=== PATIENT | female | born 2000 | race Caucasian/White ===

== ENCOUNTER → 2023-12-21 15:32 | Outpatient (REF) | payer OTHER, SELFPAY | LOC: RAD 15:32 | PROVIDERS: ATTENDING PHYSICIAN Family Medicine | DX: J45.901 Unspecified asthma with (acute) exacerbation (principal) | CPT/HCPCS: 71046 ==

== ENCOUNTER 2024-04-28 18:59 | Emergency (ER) | payer OTHER, SELFPAY ==
[2024-04-28 19:09] VITALS: BP 137/89
[2024-04-28 19:42] LABS: % Basophils 0.5 % (0-2); % Eosinophils 0.7 % (0-6); % Immature Granulocytes 0.4 % (0-0.5); % Lymphocytes 34.2 % (20.5-51.1); % Monocytes 7.1 % (1.7-9.3); % Neutrophils 57.1 % (42.2-75.2); Absolute Eosinophils 0.1 10^3/uL (0-0.7); Absolute Lymphocytes 2.9 10^3/uL (1.2-3.4); Absolute Monocytes 0.6 10^3/uL (0.1-0.6); Absolute Neutrophils 4.8 10^3/uL (1.4-6.5); Hematocrit 44.5 % (37.0-47.0); Hemoglobin 15.1 g/dL (12.0-16.0); Mean Corp Hgb Conc. 33.9 g/dL (33.0-37.0); Mean Corpuscular Hgb 28.1 pg (27.0-31.0); Mean Corpuscular Volume 82.9 fL (81.0-99.0); Mean Platelet Volume 9.7 fL (7.4-10.4); Nucleated Red Blood Cells % 0 %; Platelet Count 352 10^3/uL (130-400); Red Blood Cell Count 5.37 10^6/uL (4.20-5.40); Red Cell Dist. Width 12.4 % (11.5-14.5); White Blood Cell Count 8.5 10^3/uL (4.8-10.8)
[2024-04-28 19:57] LABS: HCG, Serum Qualitative Screen Negative
[2024-04-28 20:04] LABS: ALT (SGPT) 30 U/L (0-35); AST (SGOT) 24 U/L (14-36); Albumin 4.7 g/dl (3.5-5.0); Alkaline Phosphatase 67 U/L (38-126); Blood Urea Nitrogen 15 mg/dl (7-17); Calcium 9.6 mg/dl (8.4-10.2); Carbon Dioxide 25 mmol/L (22-30); Chloride 102 mmol/L (98-107); Glucose 110 mg/dl (70-99); Potassium 4.3 mmol/L (3.5-5.1); Sodium 137 mmol/L (135-145); Total Bilirubin 0.4 mg/dl (0.2-1.3); Total Protein 7.4 g/dl (6.3-8.2); eGFR > 60.00
[2024-04-28 20:05] LABS: Troponin I < 0.012 ng/ml
[2024-04-28 20:07] LABS: D-Dimer < 0.27 ug/mlFEU (0.00-0.50)
--- NOTE | 2024-04-28 20:38 | ED.GENMED ---
History of Present Illness
General
Chief Complaint: Cold/Flu/URI Symptoms
Source: patient
Exam Limitations: none
Time Seen by Provider: 04/28/24 20:14
History of Present Illness
History of Present Illness:
This is a 24 year old female that comes in with c/o left sided chest pain. States that on Sunday she was nauseated and dizzy. Then yesterday she started with left sided chest pain that on the left lateral chest left upper chest and left sternal
pain. States that it is not musculoskeletal as when she pushes on it, there is no increased pain. State that the pain then goes into her arm and shoulders. States that she also had some tingling of the hands and this only lasted about 10 min. Today
she still has difficulty breathing, chest pain and pain in the arms that comes in waves. States that she tried to sleep and her boyfriend said that her breathing was very shallow. States that she has a constant headache and occasionally she feels
like the room is spinning. Denies any fever, chills, abd pain, vomiting, diarrhea, urinary burning.
Past History
Past History
ED Past Medical History: Asthma and Other (Back and neck pain chronic, MIgraines. TBI, Concussion x 7, PCOS)
ED Past Surgical History: None and Other (Rizotomies X2 of back and 1 of neck. )
Social History
Tobacco: Vaping
Alcohol: Occasional
Drug: None
Personal: Single
Living: with family
Family History
Family History: Negative Diabetes, Hypertension or CAD
Review of Systems
Review of Systems
All Other Systems: ROS reviewed and negative except as documented in HPI and ROS
Constitutional: Reports no symptoms; Denies fever or chills
EENT: Reports no symptoms
Respiratory: Reports trouble breathing; Denies cough
Cardiac: Reports chest pain
ABD/GI: Reports nausea; Denies abdominal pain, vomiting or diarrhea
: Denies dysuria, frequency or urgency
Musculoskeletal: Reports no symptoms
Neurological: Reports dizzy (Occasional) and headache (Constant)
Psychiatric: Reports no symptoms
Phy Exam
General Physical Exam
General Presentation: well appearing (Patient gate is stable and she is smiling) and no apparent distress
General age: appears stated age
General Skin: warm and dry
General Habitus: normal
General Mental: alert
General Hydration: appears well hydrated
ENT Exam
ENT Exam: TM's normal, pharynx normal and neck supple
Eye Exam
Eye Exam: EOMI
Cardiovascular Exam
Cardiovascular Exam: regular rate/rhythm, no edema, no murmur and normal peripheral pulses
Pulmonary Exam
Pulmonary Exam: lungs clear, no respiratory distress, no rales, chest non tender, no crackles, no rhonchi, no wheezing and no cough
Gastrointestinal Exam
Gastrointestinal Exam: normal bowel sounds, non tender, soft, no pulsatile mass and non distended
Musculoskeletal Exam
Musculoskeletal Exam: full ROM and no edema
Skin Exam
Skin Exam: normal color, warm/dry, no rash and no petechia
Psychiatric Exam
Psychiatric Exam: normal mood/affect
Course
Orders/Labs/Results
Orders:
Orders
04/28/24 19:18
Electrocardiogram (*1) Urgent
Reason for Study: Chest Pain
Cardiac Monitoring- Treatment ONCE
EKG- Treatment ONCE
IV Insert/Care/Rem.- Treatment PRN
O2 Therapy [RESP] Urgent
Titrate/Wean O2 to maintain O2 sat greater than (%): 90
Special Instructions: Maintain sats >/=90%
Pulse Ox/spot Check [RESP] Urgent
Quantity: 1
Special Instructions: ON ROOM AIR
04/28/24 19:19
Test Result ONCE
04/28/24 19:30
Complete Blood Count/With Diff Urgent
Comprehensive Metabolic Panel Urgent
D-Dimer Urgent
HCG, Serum Qualitative Screen Urgent
Comment: Notify provider if positive test present
Troponin I Urgent
04/28/24 20:30
Ibuprofen [Motrin] 600 mg PO NOW STA
CR Chest - 2 Views Urgent
Comment:
Reason For Exam: SOB
04/28/24 21:29
CT Head W/o Iv Contrast Urgent
Comment:
Reason For Exam: Dizziness, numbness
04/28/24 21:56
COVID-19 Antigen Urgent
Source: Nasal Swab
Abnormal Lab Results
04/28/24
19:30
Glucose 110 H mg/dl
(70-99)
04/28/24 19:30
04/28/24 19:30
Glucose nonfasting. D-dimer <0.27, Troponin <0.012 HCG negative.
Vital Signs
Initial and Last Documented VS:
Initial Vital Signs
Temp Pulse Resp BP Pulse Ox
98.5 F 99 18 137/89 99
04/28/24 19:09 04/28/24 19:09 04/28/24 19:09 04/28/24 19:09 04/28/24 19:09
Last Documented Vital Signs
Temp Pulse Resp BP Pulse Ox
98.5 F 88 17 125/82 99
04/28/24 19:09 04/28/24 23:33 04/28/24 23:33 04/28/24 23:33 04/28/24 23:33
MDM/Problems Addressed
Differential Diagnosis Includes:
Chronic back and neck pain. Musculoskeletal pain, Costocondritis
MDM/Problems Addressed:
This is a 24 year old female that comes in with c/o chest pain, dizziness that started on Sunday. States that she had some tingling in the hands that lasted for about 10min and then gone.
Will check labs, Chest X-ray and medicate for pain.
Back into see patient. Explained that her CT of the head is normal along with her chest x-ray. Blood work is normal. Patient to follow up with the family doctor for further evaluation. Explained that this could be due to her back issuse. Patient to
return with any concerns.
Chronic conditions affecting care:
Chronic back and neck pain
Acute Exacerbation and/or Progression of Chronic Illness:
Chronic back and neck pain
*Radiology
Radiology exam reviewed: preliminary read by ED provider (Chest- negative for active disease. ) and radiology read reviewed (CT head=Normal Chest-No active cardiopulmonary disease. )
*Pulse Oximetry
Patient hypoxic: no
*EKG
Interpreted by ED Provider?: Yes
Heart Rate: 80
Rate: normal
Rhythm: sinus
[place]: normal axis
Interval: normal interval
QRS Pattern: normal QRS
Ischemia: no ischemia
*[employer] Interpretation
Rate: [employer]- N/A
*Critical Care Note
Total Time (30-74mins, 75-104mins- exclusive of procedures): Not Applicable
ED Attending Note
-
Portions of this chart may have been created with voice recognition software.� Occasional wrong word or��sound alike� substitutions may have occurred due to the inherent limitations of voice recognition software.
Discharge Plan
Departure
Patient Disposition: Home (Routine Discharge)
Date of Disposition: 04/28/24
Time of Disposition: 23:40
Patient with high blood pressure during this ER visit?: No
Condition: Good
Covid-19: Not Applicable
Discharge Problem:
Chest pain, SOB (shortness of breath)
Instructions: Chest pain - Discharge instructions, Shortness of breath in adults - ED discharge instructions
Prescriptions:
No Action
montelukast 10 MG tablet
10 mg PO HS
cetirizine 10 MG tablet
10 mg PO DAILY
topiramate 100 MG tablet
100 mg PO HS
montelukast 10 MG tablet
10 mg PO QPM Qty: 15 0RF
Referrals:
Ivonne Turner CRNP [Family Provider] - Follow up in 2-3 days
Activity Restrictions/Additional Instructions:
As discussed, your blood work is all normal. Your CT of the head is normal along with your chest x-ray. This may all be due to your back issues. Please follow up with the family doctor for further evaluation. IF YOU HAVE ANY OTHER CONCERNS PLEASE
RETURN TO THE EMERGENCY ROOM.
Interventions
Interventions:
ED- Pulmonary Assessment Last Done: 04/28/24 22:40
Discharge Date and Time
Print Language: [id number]
[2024-04-28] MEDS: MOTRIN 600 MG PO (21:21)
[2024-04-28 22:25] LABS: COVID-19 Antigen Negative (Negative)
[2024-04-28 23:33] VITALS: BP 125/82
== END 2024-04-29 00:05 | disposition home or self-care (01) ==
LOC: EMR 18:59
PROVIDERS: Clinical Nurse Specialist Family Health; Emergency Medicine; EMERGENCY PHYSICIAN Emergency Medicine; FAMILY PHYSICIAN Nurse Practitioner
DX: R07.89 Other chest pain (principal); R06.02 Shortness of breath; J45.909 Unspecified asthma, uncomplicated; F17.290 Nicotine dependence, other tobacco product, uncomplicated
CPT/HCPCS: 99284; 70450; 71046; 80053; 84484; 84703; 85025; 85379; 87811; 93005

== ENCOUNTER → 2024-08-26 07:20 | Outpatient (REF) | payer OTHER, SELFPAY | LOC: RAD 07:20 | PROVIDERS: ATTENDING PHYSICIAN Nurse Practitioner; FAMILY PHYSICIAN Nurse Practitioner | DX: N30.10 Interstitial cystitis (chronic) without hematuria (principal) | CPT/HCPCS: 76770 ==

== ENCOUNTER → 2024-09-24 14:03 | Outpatient (REF) | payer OTHER, SELFPAY | LOC: RAD 14:03 | PROVIDERS: ATTENDING PHYSICIAN Physician Assistant Medical; FAMILY PHYSICIAN Nurse Practitioner | DX: R05.1 Acute cough (principal); J45.901 Unspecified asthma with (acute) exacerbation; J45.991 Cough variant asthma | CPT/HCPCS: 71046 ==

== ENCOUNTER → 2024-12-16 08:41 | Outpatient (REF) | payer OTHER, SELFPAY | LOC: DHSLP 08:41 | PROVIDERS: ATTENDING PHYSICIAN Internal Medicine; FAMILY PHYSICIAN Nurse Practitioner | DX: G47.30 Sleep apnea, unspecified (principal); R06.83 Snoring | CPT/HCPCS: 95800 ==